=== PATIENT | female | born 1935 | race Caucasian/White ===

== ENCOUNTER → 2019-06-29 | Outpatient (CLI) | payer OTHER ==
[~2019-06-29] MED LIST: ALBU90OI; ALBU90OI61 INH; BECLOMETHASONE; CALCA500CH; ESTRTP; FEXO60; FLAX; HYDACE5 PO; METR500 PO; MOEHYD7.5; MOMENI; NITR100CA PO; OMEP20ER; OMEP20ER PO; PRED5 PO; SULTRIDS PO
== END | disposition home or self-care (01) ==
LOC: LAB SHORT 10:36 → PLD 10:36
DX: L57.0 Actinic keratosis (principal); L57.8 Other skin changes due to chronic exposure to nonionizing radiation
CPT/HCPCS: 88305

== ENCOUNTER 2020-02-12 08:25 | Day surgery (SDC) | payer OTHER ==
[~2020-02-12] VITALS: Ht 175.3 cm; Wt 67.2 kg
[2020-02-12] MEDS ORDERED: FLUT1DIS2 INH (09:04)
[2020-02-12] MEDS ORDERED: LEVSOD75 PO (09:05)
[2020-02-12] MEDS ORDERED: PROAIR DIGIHAL90 MCG IH (09:05)
[2020-02-12] MEDS ORDERED: CONEST.625 PO (09:05)
[2020-02-12] MEDS ORDERED: Aspirin EC81 MG PO (13:13)
--- NOTE | 2020-02-12 13:54 | NUR ---
2mL AIR RELEASED FROM [facility]. NO BLEEDING, OOZING OR HEMATOMA NOTED. WILL CONTINUE TO MONITOR.
--- NOTE | 2020-02-12 14:01 | NUR ---
ADDITIONAL 2mL AIR REMOVED FROM [facility]. BLEEDING FROM SITE OCCURED. 2mL AIR REPLACED. WILL WAIT 30MINS BEFORE REMOVING AIR AGAIN. WILL CONTINUE TO MONITOR
--- NOTE | 2020-02-12 14:41 | NUR ---
RELEASED 3mL AIR FROM TR [facility]. SCANT OOZING NOTED. WILL CONTINUE TO MONITOR. PLAN TO RELEASE ADDITIONAL AIR IN A FEW MINS.
--- NOTE | 2020-02-12 14:46 | NUR ---
ADDITIONAL 2mL AIR RELEASED FROM TR [facility]. NO BLEEDING, OOZING OR HEMATOMA NOTED. WRIST IS SOFT ABOVE AND BELOW TR BAND. WILL CONTINUE TO RELEASE AIR FROM TR BAND ORDERED.
--- NOTE | 2020-02-12 15:00 | NUR ---
REMAINDER OF AIR RELEASED FROM TR [facility]. NO BLEEDING AT SITE.
--- NOTE | 2020-02-12 16:20 | NUR ---
DISCHARGE PT UP TO RESTROOM WITH NO ASSISTANCE. PT ABLE TO DRESS SELF WITH NO COMPLICATIONS. TR BAND REMOVED- NO BLEDING, OOZING OR HEMATOMA NOTED. PT DENIES PAIN. SITE CLEANED AND CLOTH DOT BANDAGE APPLIED. VSS. PT STATES HER UNDERSTANDING OF DISCHARGE AND SITE CARE INSTRUCTIONS AND DENIES ANY QUESTIONS OR CONCERNS. PT SENT HOME IN A SLING AND WHITE BOARD ON WRIST. IV DCD WITH CATH IN TACT. PT TAKEN TO FRONT ENTERENCE VIA WHEELCHAIR WHERE DIAL A RIDE WAS WAITING.
== END 2020-02-12 16:15 | disposition home or self-care (01) ==
LOC: MHTC 08:25
DX: I70.203 Unspecified atherosclerosis of native arteries of extremities, bilateral legs (principal); Z88.2 Allergy status to sulfonamides; Z88.0 Allergy status to penicillin; Z88.8 Allergy status to other drugs, medicaments and biological substances; Z79.899 Other long term (current) drug therapy; Z79.82 Long term (current) use of aspirin; Z79.51 Long term (current) use of inhaled steroids
CPT/HCPCS: 76937; 99152; 99153; C1769; C1887; C1894; J1644; J2250; J3010; J7030; Q9967

== ENCOUNTER → 2020-05-13 | Outpatient (CLI) | payer OTHER ==
[~2020-05-13] MED LIST changes: +Aspir 8181 MG PO; +Aspirin EC81 MG PO; +CALCIUM CIT 311 EACH PO; +CLOP75 PO; +CONEST.625 PO; +FLUT1DIS2 INH; +FLUT1DIS5 INH; +LEVSOD75 PO; +Magnesium30 MG; +PROAIR DIGIHAL90 MCG IH; +QVAR REDIHALE10.6 GM INH
== END | disposition home or self-care (01) ==
LOC: PLD 15:00 → LAB SHORT 15:00
DX: C44.629 Squamous cell carcinoma of skin of left upper limb, including shoulder (principal)
CPT/HCPCS: 88305

== ENCOUNTER → 2020-05-29 | Outpatient (CLI) | payer OTHER | END | disposition home or self-care (01) | LOC: LAB SHORT 14:35 → PLD 14:35 | DX: D04.62 Carcinoma in situ of skin of left upper limb, including shoulder (principal); L57.8 Other skin changes due to chronic exposure to nonionizing radiation | CPT/HCPCS: 88305 ==